=== PATIENT | female | born 1985 | race African-American/Black ===

== ENCOUNTER 2016-09-15 16:38 | Inpatient (IN) | payer SELFPAY ==
[~2016-09-15] VITALS: Ht 177.8 cm; Wt 104.5 kg
[2016-09-15] MEDS ORDERED: ACETYLCYSTEINE 20%(200MG/ML) SOLN 30ML PO ONE ×3 (18:15→18:45)
[2016-09-15 18:18] LABS: Acetaminophen 34.2 ug/mL (10-30); Salicylate 3.6 mg/dL (2.8-20.0)
[2016-09-15 18:35] LABS: Albumin 3.6 g/dL (3.4-5.0); Calcium 8.2 mg/dL (8.5-10.1)
[2016-09-15 18:38] LABS: Bilirubin, Total 0.6 mg/dL (0.2-1.0); Total Protein 7.3 g/dL (6.4-8.2)
[2016-09-15] MEDS ORDERED: ACETYLCYSTEINE ORAL for CIN 20%(200MG/ML) 4ML PO ONE ×3 (18:45)
[2016-09-15] MEDS ORDERED: IBUPROFEN 600 MG TAB PO ONE (20:45)
[2016-09-15] MEDS ORDERED: SODIUM CHLORIDE 0.9% 1,000 ML IV SCH (22:25)
[2016-09-15] MEDS ORDERED: IBUPROFEN 600 MG TAB PO PRN (22:30)
[2016-09-15 23:30] VITALS: BP 127/79
[2016-09-15] MEDS: ACETYLCYSTEINE 20%(200MG/ML) SOLN 30ML PO SCH (23:38)
[2016-09-16] MEDS: ACETYLCYSTEINE 20%(200MG/ML) SOLN 30ML PO SCH (03:18)
[2016-09-16 04:30] VITALS: BP 140/68
[2016-09-16 06:00] LABS: Basophils # (auto) 0.1 uL; Basophils % (auto) 0.6 % (0.0-2.0); Eosinophils # (auto) 0.2 uL; Hemoglobin 12.7 g/dL (12.2-16.2); Lymphocytes # (auto) 3.7 uL; Lymphocytes % (auto) 36.6 % (10.0-50.0); Mean Corpuscular Hemoglobin 32.6 pg (28.0-32.0); Mean Corpuscular Hgb Conc. 33.3 g/dL (32.0-36.0); Mean Corpuscular Volume 97.8 fL (80.0-100.0); Mean Platelet Volume 7.7 fL (7.4-10.4); Monocytes # (auto) 0.6 uL; Monocytes % (auto) 6.5 % (0.0-12.0); Neutrophils # (auto) 5.5 uL; Neutrophils % (auto) 54.3 % (37.0-80.0); Platelet Count (auto) 249 10^3/uL (140-450); Red Cell Distribution Width 13.7 % (11.6-16.0); White Blood Cell 10.1 10^3/uL (4.4-10.8)
[2016-09-16 06:23] LABS: Albumin 3.2 g/dL (3.4-5.0); BUN/Creatinine Ratio 14.1; Bilirubin, Total 0.8 mg/dL (0.2-1.0); Calcium 8.5 mg/dL (8.5-10.1); Potassium 3.8 mmol/L (3.5-5.1); Total Protein 6.6 g/dL (6.4-8.2)
[2016-09-16] MEDS ORDERED: ACETYLCYSTEINE 20%(200MG/ML) SOLN 30ML PO SCH (07:30)
[2016-09-16 08:05] VITALS: BP 110/66
[2016-09-16 09:42] VITALS: BP 110/66
== END 2016-09-16 10:50 | disposition left against medical advice (07) | DRG 917 ==
LOC: EDUNIT# 16:38 → ER 16:47 → OVERFLOW 16:48 → WEST WING 23:28
PROVIDERS: ADMIT Family Medicine; ATTEND Family Medicine
DX: T39.1X1A Poisoning by 4-Aminophenol derivatives, accidental (unintentional), initial encounter (principal); G92 Toxic encephalopathy; K08.89 Other specified disorders of teeth and supporting structures; F17.210 Nicotine dependence, cigarettes, uncomplicated; Y92.89 Other specified places as the place of occurrence of the external cause; Z88.8 Allergy status to other drugs, medicaments and biological substances
CPT/HCPCS: 36415; 80053; 80329; 85025; 96360